=== PATIENT | male | born 1995 | race Caucasian/White ===

== ENCOUNTER 2023-03-26 12:24 | Emergency (ER) | payer SELFPAY ==
[2023-03-26] MEDS ORDERED: Fluorescein 1 MG Ophth Strip EYERT ONE (12:42)
[2023-03-26] MEDS ORDERED: Proparacaine 0.5% Ophth Soln 15 ML Bottle EYERT ONE (12:42)
[2023-03-26] MEDS ORDERED: Erythromycin Base 0.5% Ophth Oint 1 GM Tube EYERT ONE (13:42)
[2023-03-26] MEDS ORDERED: Acetaminophen 325 MG Tab PO ONE (13:43)
== END 2023-03-26 14:13 | disposition home or self-care (01) ==
LOC: JD.ED 12:24
DX: S05.01XA Injury of conjunctiva and corneal abrasion without foreign body, right eye, initial encounter (principal); T26.11XA Burn of cornea and conjunctival sac, right eye, initial encounter; X58.XXXA Exposure to other specified factors, initial encounter; Y99.0 Civilian activity done for income or pay; Y92.89 Other specified places as the place of occurrence of the external cause
CPT/HCPCS: 99283; A9270; 99282; J3490